=== PATIENT | female | born 1950 | race Caucasian/White ===

== ENCOUNTER → 2018-03-10 09:21 | Outpatient (CLI) | payer MEDICARE, SELFPAY ==
--- NOTE | 2018-03-10 09:26 | STE_ITS ---
Reason For Study: chest pain Stress Results Protocol: Tyler Protocol Maximum Predicted HR: 155 bpm Target HR: 132 bpm% Max imum Predicted HR: 97 % DurationHeart Rate Stage (mm:ss) (bpm) BP Baseline 74 118/74 Stage 1 3:00 10 6 150/70 Stage 2 3:00 12 6 158/80 Stage 3 3:00 15 0 172/78 Recovery 89 130/70 Stress Duration: 9:00 mm:ss Maximum Stress HR: 150 bpm Baseline Echocardiogram Findings Stress Echo Wall motion Data Resting WMIntermediate WMStress WM Resting Wall Motion Wall Motion Stress No regional wall motion No regional wall motion abnormalities noted. abnormalities noted. Ejection Fraction 55 %. Ejection Fraction 65 %. Stress Results Normal blood pressure response to exercise. Exercise was stopped due to fatigue. EKG Data Baseline ECG demonstrates normal sinus rhythm with a rate of 76 beats per minute. Normal intervals are noted. The resting blood pressure was 118/74. The patient exercised according to the regular Tyler protocol for a total duration of 9 min. The maximum heart rate attained was 153 beats per minute. This was 98% of maximum predicted heart rate. The patient exercised into stage 3 of the Tyler protocol. During stress, there were no ST or T wave changes noted to suggest ischemia. At peak exercise, upsloping ST changes only were noted, which did not meet the criteria for ischemia. Interpretation Summary Normal resting LV systolic function. Nonstenotic valves. With stress, the LV size decreased and all segments augmented normally. The LVEF increased from 55% to 60%. Negative for ischemia at 98% of MPHR and at 10.4 METS. No chest pain noted. Normal stress echo at a high workload. Ordering Physician: Shahriar Vazquez Referring Physician: Shahriar Vazquez Performed By: Ted Villalobos RCS
== END ==
PROVIDERS: Family Provider Family Medicine Geriatric Medicine; PCP Family Medicine Geriatric Medicine; Visit Provider Internal Medicine Cardiovascular Disease
DX: R07.9 Chest pain, unspecified (principal)
CPT/HCPCS: 93017; 93350

== ENCOUNTER → 2019-02-27 | Outpatient (CLI) | payer MEDICARE, SELFPAY ==
[2019-02-27 11:42] VITALS: BMI 23.1
[2019-02-27 13:31] LABS: Absolute Lymphocyte Count 2.07 X10^3/uL (0.83-4.51); Absolute Neutrophil Count 4.3 X10^3/uL (2.0-7.7); Basophil# 0.03 X10^3/uL; Basophil% 0.4 % (0-1); Eosinophils% 1.4 % (0-5); Hematocrit 41.7 % (37-47); Lymphocyte # 2.07 X10^3/ul (4.0); Lymphocyte % 28.6 % (19-41); Mean Corp Hgb Conc 33.6 g/dL (32-36); Mean Corpuscular Hgb 30.8 pg (27.0-32.0); Mean Corpuscular Volume 91.6 fL (81-99); Monocyte# 0.72 X10^3/uL; Monocyte% 9.9 % (0-10); NRBC Flagged by Analyzer 0 % (0-5); Neutrophil # 4.29 X10^3/uL (2.7-7.7); Neutrophil % 59.3 % (47-70); Platelet Count 348 K/mm3 (150-450); RBC Distribution Width CV 11.9 % (11.6-14.6); RBC Distribution Width SD 39.8 fl (35.1-43.9); Red Blood Count 4.55 M/mm3 (4.2-5.4); White Blood Count 7.2 K/mm3 (4.4-11.0)
[2019-02-27 14:04] LABS: Anion Gap 2 (5-15); BUN 22 mg/dL (7-18); BUN/Creat Ratio 32.4 RATIO (10-20); Calcium,Total 9.1 mg/dL (8.5-10.1); Chloride 107 mmol/L (98-107); Cholesterol 233 mg/dL (200); Creatinine, Serum 0.68 mg/dL (0.55-1.02); EST Glomerular Filtration Rate 92 mL/min (>60); Est Glom Filt Rate - Afr Amer 112 mL/min (>60); Glucose 94 mg/dL (74-106); High Density Lipoprotein 89 mg/dL; Potassium 4.2 mmol/L (3.5-5.1); Sodium Level 137 mmol/L (136-145); Thyroid Stim Hormone (TSH) 0.69 uIU/mL (0.358-3.74); Triglycerides 113 mg/dL; Very Low Density Lipoprotein 23 mg/dL (5-40)
== END | disposition home or self-care (01) ==
LOC: LAB 12:25
PROVIDERS: Family Provider Family Medicine Geriatric Medicine; PCP Family Medicine Geriatric Medicine; Referring Provider Internal Medicine Cardiovascular Disease; Visit Provider Internal Medicine Cardiovascular Disease
DX: R07.9 Chest pain, unspecified (principal); E78.5 Hyperlipidemia, unspecified
CPT/HCPCS: 36415; 80048; 80061; 84443; 85025

== ENCOUNTER 2020-01-23 04:30 | Emergency (ER) | payer MEDICARE, SELFPAY ==
[2019-12-24 14:11] VITALS: BMI 22.1
[2020-01-23 04:31] VITALS: BP 157/103; PULSE 82; RESP 22; TEMP 36.6; O2SAT 98; BMI 24.5
[2020-01-23 04:34] VITALS: BP 157/103; PULSE 82; RESP 22; TEMP 36.6; O2SAT 98
--- NOTE | 2020-01-23 04:44 | ED.DCSUM_ITS ---
History of Present Illness Chief Complaint: Bite Informant: Patient Occurred: Hours - 6-7 Mechanism/Context: - - bit in right forearm by cat Context: Gradual Onset - soreness and swelling after the bite Timing: Continuous Quality of Pain: - - sore Location: right distal dorsal forearm Current Severity: Mild Maximum Severity: Mild Worsened by: making a fist, movement Relieved by: remaining still Associated Symptoms: Negative for: Parasthesia, Weakness, Loss of Funtion Narrative: Patient states she was bitten by a neighborhood cat. She has a cat, and this other cat she sees almost daily who comes around. Tonight, the cat was well- appearing, rubbing itself on her leg, she simply bent down and scratched it back very gently and the cat suddenly seem scared and bit her in the arm. She had the think for a minute about whether this was a bite or scratch but she is pretty sure it was a bite. The cat did not seem ill. Patient started developing some swelling and a little bit more discomfort in the area in the next several hours, but no loss of function, fevers or systemic symptoms. Tetanus Immunization: <5 years - 2 yrs - Past Medical History (1) Hyperlipidemia Status: Chronic Past Medical History - Allergies and Home Meds Allergies/Adverse Reactions: Allergies gluten Adverse Reaction (Verified 01/23/20 04:33) GI Upset Primary Care Physician: Raleigh Reagan Chi, MD [Primary Care Provider] - Smoking Status: Former smoker Review of Systems General: Denies: Chills, Fever, Sweats Musculoskeletal: Reports: Extremity Pain Skin: Reports: Wounds Neurological: Denies: Headache, Weakness, Numbness Physical Exam Vital Signs/Narrative: Vital Signs Temp Pulse Resp BP Pulse Ox 01/23/20 04:31 97.9 F 82 22 H 157/103 H 98 General: Well nourished, Well developed, - - Well-appearing, no distress Head: Normocephalic, Atraumatic ENT: No Trauma, Moist Mucous Membranes Extremeties: Right upper extremity: Full range of motion throughout all joints, including wrist flexion and extension, fingers extension and flexion. No tenderness in the distribution of extensor tendons proximally or distally from the area of the wound. The wound is mildly tender. There is no fluctuance. It is mildly swollen around the puncture wounds. All compartments soft, nondistended. Skin: Normal color, Trauma - 2 or 3 small puncture wounds on the dorsum of the right distal forearm. No sign of infection. Very small amount of serosanguineous discharge expressible from 1 of them. Minor superficial abrasions associated with these. No abscess, redness/cellulitis, lymphangitis. Neurological: Alert, Oriented x3, Normal Gait Psychological: Normal affect, Normal Mood Diagnostic/Tx/Re-eval - Medical Decision Making Patient is placed on Augmentin for infection prophylaxis. We discussed reasons to return. Her tetanus is up-to-date. The wound was cleansed and dressed with bacitracin. She was offered ibuprofen but declined. With regards to rabies, she states she sees this cat daily, and it does not appear to be ill although she does not know who owns it. As long as she is comfortable continuing to observe the cat for symptoms, I am comfortable with her going home without rabies vaccinations. We discussed this at length. If at some point something changes, such as the cat is gone and she never sees it again and she changes her mind, we are welcome to evaluate her again and discuss further, but I suspect that the risk of rabies in this cat is low. ED Disposition - Plan for ED Patient: Disposition: Home or Assisted Living Diagnosis: Cat bite of right forearm Instructions: ED Bite Cat Prescriptions: Amox/Clavulanate Tablet [Augmentin Tablet] 875 mg PO Q12H #20 tab Transmission Status: Pending to TRAN [id number] Referrals: Raleigh Reagan Chi, MD [Primary Care Provider] - As Needed
[2020-01-23] MEDS: Amox/Clavulanate 875 MG Tablet PO (04:46)
== END 2020-01-23 05:14 | disposition home or self-care (01) ==
LOC: ED 04:58
PROVIDERS: Emergency Provider Emergency Medicine; PCP Family Medicine Geriatric Medicine
DX: S51.851A Open bite of right forearm, initial encounter (principal); W55.01XA Bitten by cat, initial encounter; Z87.891 Personal history of nicotine dependence
CPT/HCPCS: 99283

== ENCOUNTER 2020-10-18 16:45 | Outpatient (RCR) | payer MEDICARE, SELFPAY ==
[2020-09-27 07:47] VITALS: BMI 24.9
[2020-10-18] MEDS: COVID-19 VACC, MRNA(PFIZER)/PF 30 MCG/0.3 ML SYRINGE IM (15:13)
[2020-11-08] MEDS: COVID-19 VACC, MRNA(PFIZER)/PF 30 MCG/0.3 ML SYRINGE IM (14:56)
== END 2021-01-17 23:59 ==
LOC: IMMUN 16:45
PROVIDERS: PCP Family Medicine; Visit Provider Family Medicine
DX: Z23 Encounter for immunization (principal)
CPT/HCPCS: 0001A; 0002A; 91300

== ENCOUNTER → 2021-03-24 07:57 | Outpatient (CLI) | payer MEDICARE, SELFPAY ==
[2021-03-07 05:28] VITALS: BMI 24.9
[2021-03-07 14:47] VITALS: BMI 24.0
--- NOTE | 2021-03-24 08:05 | CT_ITS ---
STUDY: CT ABDOMEN AND PELVIS WITH CONTRAST REASON FOR EXAM: Female, 70 years old. Ventral hernia RADIATION DOSAGE (If Supplied By Facility): CTDIvol = ( 11.64 ) mGy, DLP = ( 616.79 ) mGycm TECHNIQUE: Transaxial images were obtained from the dome of the diaphragm to the symphysis pubis with oral contrast. Oral and amp; IV Readi-CAT and amp; 100mL Isovue-300 was administered. Sagittal and coronal images were reconstructed. Individualized dose optimization techniques were used for this CT. COMPARISON: None. FINDINGS: The visualized lung bases are unremarkable. The visualized portions of the heart are within normal limits. There is a 1 cm cyst in the dome of the right lobe of the liver. Normal gallbladder and extrahepatic biliary system. Normal spleen. Focal area of coarse calcifications seen in the region of the head and uncinate process of the pancreas. This may represent changes secondary to chronic pancreatitis. No definite mass lesion is seen. Normal bilateral adrenal glands. Normal right kidney. Normal left kidney. Normal visualized stomach. Normal small intestine. Moderate amount of fecal material is seen throughout the colon. The appendix is visualized and appears normal. Normal abdominal aorta. Normal inferior vena cava. Normal retroperitoneum. Normal urinary bladder. Calcified fibroid uterus. There is a small umbilical hernia containing fat. Normal osseous structures. CT/Abdomen/Pelvis WITH Contrast IMPRESSION: Amorphous calcifications in the region of the head and uncinate process of the pancreas suggestive of chronic localized pancreatitis. No mass lesion is seen. Small umbilical hernia containing fat. Electronically Signed: Dudley Casillas MD at 11:12 EDT , Service support ,
[2021-03-24 08:26] LABS: CREATININE FINGERSTICK 0.7 mg/dL (0.55-1.02); EGFR FINGERSTICK > 60.0000 mL/min (>60)
== END ==
PROVIDERS: PCP Family Medicine; Referring Provider Surgery; Visit Provider Surgery
DX: E78.5 Hyperlipidemia, unspecified (principal); K43.9 Ventral hernia without obstruction or gangrene
CPT/HCPCS: 74177; Q9967

== ENCOUNTER 2021-06-26 08:55 | Day surgery (SDC) | payer MEDICARE, SELFPAY ==
--- NOTE | 2021-06-21 10:32 | EKG12_ITS ---
Test Reason : PREOP Blood Pressure : / mmHG Vent. Rate : 062 BPM Atrial Rate : 062 BPM P-R Int : 192 ms QRS Dur : 080 ms QT Int : 406 ms P-R-T Axes : 062 -20 060 degrees QTc Int : 412 ms Normal sinus rhythm Normal ECG Confirmed by ONEIDA SCHULTE, CASSANDRA ([id number]), production editor REZA SCHROEDER ([id number]) on 06/22/2021 9:01:02 AM Referred By: José Beard Confirmed By:CASSANDRA MOHAMUD MD
[2021-06-26 09:47] VITALS: BP 129/85; PULSE 79; RESP 16; TEMP 36.8; O2SAT 98; BMI 24.2
[2021-06-26] MEDS: Lactated Ringers 1,000 ML 15 ML IV (09:52)
--- NOTE | 2021-06-26 11:00 | HERN_PTH ---
PATIENT: SCHUYLER FRYE LOC: [facility] – [place] U#:[id number] AGE/SX: 70/F ROOM: RE06/26/[address]: Dr. José Beard MD : 1950 BED: DIS: 06/26/2021 SPEC #: [id number] RECD: 06/26/21 14:13 STATUS: JUICE FELDMAN #: [id number] ROD: 06/26/21 11:[address]: José Beard DEPT: SURGICAL PATHOLOGY RECD BY: Ne Santoro ENTERED: 06/27/21 07:44 SP TYPE: Hernia OTHR DR: Dr. Belinda Ortiz MD Tissues: HERNIA Procedures: Surgery Specimen Level II HEADER OPERATION: Ventral incisional hernia repair with mesh PRE-OP DIAGNOSIS: Ventral hernia TISSUE SUBMITTED: Hernia sac and contents MICROSCOPIC DIAGNOSIS Hernia sac and contents: A piece of fibroadipose tissue, clinically hernia sac. SJ:charisse 06/28/2021 MICROSCOPIC DESCRIPTION Slides are reviewed. GROSS DESCRIPTION Received in fixative is one container labeled with the patient's name and designated hernia sac and contents. The specimen consists of an irregular piece of klein-yellow adipose tissue measuring 8 x 3.5 x 1.5 cm. No mass lesion is identified. Software Development Intern sections are submitted in one cassette. / SUSY:charisse 06/27/21 TC:5 [facility]: [id number]
--- NOTE | 2021-06-26 11:11 | HP.PCM_ITS ---
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 Is patient in pain?: No Allergies gluten Adverse Reaction (Verified 06/20/21 13:16) GI Upset Medications B-complex with vitamin C 1 cap PO QDAY 02/05/18 [History Confirmed 06/20/21] ascorbic acid (vitamin C) 500 mg capsule 500 mg PO .QD cap 12/24/19 [History Confirmed 06/20/21] cholecalciferol (vitamin D3) 50 mcg (2,000 unit) capsule 50 mcg PO DAILY 12/24/19 [History Confirmed 06/20/21] PFSH Medical History Alcohol use Back pain Cardiology follow-up encounter Colon polyps Dietary restriction Former smoker Hemorrhoids History of stress test Hyperlipidemia Leg cramps Marijuana use Migraine headache Seasonal allergies Wears glasses Wears hearing aid Surgical History H/O wrist surgery History of colonoscopy Family History Father Heart disease angina Mother Hypertension Thyroid disorder Sister Colon cancer Social History Smoking Status: Former smoker HPI HPI HPI: SCHUYLER FRYE, is a 70 F who presents to the office today for an update history and physical. She denies recent hospitalizations or illnesses. She denies previous complications from anesthesia. She denies previous cardiac and pulmonary history. She notes intermittent constipation, however this is not a new symptoms for her. She denies pain at the hernia site. Patient's previous history per Dr. Beard: SCHUYLER FRYE, is a 70 F who presents to the office today for surgical consultation for a bulge between her sternum and navel. The patient is referred by Dr. Belinda Ortiz and written copy my surgical consult and recommendations will return to her. The patient apparently has concerns that she might have a ventral hernia. The patient does yoga. She states that for over a decade she noticed a small mass in the mid epigastric area. It is progressively enlarging. She states that she has gained about 20 pounds in weight. Taking a deep breath is slightly more difficult. She has not had any imaging of this area. She has not any previous abdominal surgery. SCHUYLER FRYE, is a 70 F who presents to the office today for ongoing surgical evaluation regarding a subcutaneous mass in the epigastrium. To help evaluate this the patient had a CT scan of the abdomen March 24, 2021. Although the interpretation below does not discussed the particular finding I am able to personally review the films and identify that the patient has a epigastric hernia with subsequent subcutaneous mass as a result. The patient has had no change in health since her previous office visit. March 24, 2021 STUDY: CT ABDOMEN AND PELVIS WITH CONTRAST REASON FOR EXAM: Female, 70 years old. Ventral hernia RADIATION DOSAGE (If Supplied By Facility): CTDIvol = ( 11.64 ) mGy, DLP = ( 616.79 ) mGycm TECHNIQUE: Transaxial images were obtained from the dome of the diaphragm to the symphysis pubis with oral contrast. Oral and amp; IV Readi-CAT and amp; 100mL Isovue-300 was administered. Sagittal and coronal images were reconstructed. Individualized dose optimization techniques were used for this CT. COMPARISON: None. FINDINGS: The visualized lung bases are unremarkable. The visualized portions of the heart are within normal limits. There is a 1 cm cyst in the dome of the right lobe of the liver. Normal gallbladder and extrahepatic biliary system. Normal spleen. Focal area of coarse calcifications seen in the region of the head and uncinate process of the pancreas. This may represent changes secondary to chronic pancreatitis. No definite mass lesion is seen. Normal bilateral adrenal glands. Normal right kidney. Normal left kidney. Normal visualized stomach. Normal small intestine. Moderate amount of fecal material is seen throughout the colon. The appendix is visualized and appears normal. Normal abdominal aorta. Normal inferior vena cava. Normal retroperitoneum. Normal urinary bladder. Calcified fibroid uterus. There is a small umbilical hernia containing fat. Normal osseous structures. CT/Abdomen/Pelvis WITH Contrast IMPRESSION: Amorphous calcifications in the region of the head and uncinate process of the pancreas suggestive of chronic localized pancreatitis. No mass lesion is seen. Small umbilical hernia containing fat. Electronically Signed: Dudley Casillas MD at 11:12 EDT , Service support , ROS General General: Yes weight change; No appetite, fatigue, colon cancer, breast cancer or weakness HEENT HEENT: No difficulty swallowing, eye injury, eye surgery, swollen glands or hoarseness Endo Endocrine: No thyroid disease, diabetes mellitus, thyroid cancer, Hair loss, heat intolerance or cold intolerance Musc Musculoskeletal: Yes arthritis; No back problems, rheumatoid arthritis, gout or joint pain Cardio Cardiovascular: No murmur, pacemaker, heart disease, atrial fibrillation, high blood pressure, heart attack, heart stent, palpitations, shortness of breat with exertion or chest pain Psych Psychiatric: No depression, anxiety or hearing voices Resp Respiratory: No shortness of breath, No sleep apnea, No cough, No COPD, No asthma, No emphysema and No wheezing Gastro Gastrointestinal: No abdominal pain, No nausea or vomiting, No diarrhea, No constipation, No blood in stool, No acid reflux, No hemorrhoids, No ulcers, No gallbladder problem and No black,tarry stools Bruno Hematologic: No blood thinners, No blood disorders, No bleeding, No anemia and No blood clots Neuro Neurologic: No weakness Exam Const General: cooperative, healthy appearing, comfortable and no acute distress HENAL Head: normal to inspection Eyes General: appearance normal, both eyes and all related structures Neck Neck: normal visual inspection Neck mass: No Resp Effort & Inspection: normal respiratory effort Auscultation: clear to auscultation bilaterally Cardio Rate: regular rate Rhythm: regular rhythm GI Inspection: normal to inspection Palpation: soft and hernia (epigastric ventral reducible hernia palpated. ) ventral Auscultation: normal bowel sounds Skin General: no rashes or lesions noted Neuro General: no focal motor deficits and CN's II-XI intact bilaterally Extrem General: normal to inspection Psych Appearance: grossly normal Affect: normal affect COVID (Procedure Consent) Procedure Criteria Procedure Criteria: Yes Elective The surgeon/proceduralist and patient have discussed in detail the risk of exposure to and/or potential harm posed by the COVID-19 virus with having a surgery/procedure at this time versus the risk of delaying the surgery/procedure. It is not possible to know either the risk of delaying the surgery or procedure or chance of getting an infection with perfect accuracy, but a joint decision was made between the patient and the surgeon/ proceduralist to proceed at this time with the scheduled surgery/procedure as indicated on the consent form. Assessment and Plan Assessment and Plan (1) Ventral hernia without obstruction or gangrene: Status: Acute Plan - Christina DIAZ PA-C: Dr. Beard will plan to perform an open ventral hernia repair with mesh. Procedure details, risks and benefits have been reviewed. Patient has had the opportunity to ask and have questions answered. Patient verbally understands and agrees with the plan. We have reviewed post-operative instructions. Coding Level of Care Code No Charge Diagnoses Ventral hernia without obstruction or gangrene K43.9 Christina Suresh PA-C I concur with the above findings. I agree. The clinical examination. The patient notes some generalized abdominal bloatedness. I instructed her that we would not be doing exploratory laparotomy and that this hernia repair will be a focal event. If she has symptoms postoperatively we would need to evaluate addit ionally further symptoms. She has had an opportunity to ask and have questions answered. We will proceed as noted. José Beard M.D., F.A.C.S.
--- NOTE | 2021-06-26 11:13 | EX.PCM.DISCH ---
Discharge Instructions Procedure General Surgery Diet Discharge Diet: Light diet - advance as tolerated (if you have questions about your diet instructions, please talk to you doctor.) Activity Discharge Activity: May Not Drive (for 3-5 days or while taking narcotic pain medicine.) May shower in (days): 1 Lifting Restrictions: 10 pounds Dressing / Incision Call your doctor if your incision/area has: Continuous Slow Oozing, Sudden Increased Bleeding, Increased Pain/ Swelling, Increased Redness and Foul Smelling Discharge Call your doctor if you observe: Fever of 101 or Higher Suture Line Care: Avoid Pulling/Pushing and Avoid Pinching/Bending Additional Dressing/Incision Instructions:: Change or remove dressing in 4 days. Leave steri-strips in place for 1 week. Follow Up Care Please Follow Up With: José Beard MD When: Call [phone] to make an appointment to be seen in about 10 days. Test Results: Test results from this visit will be discussed in further detail at your follow-up appointment, if applicable. Discharge Plan Admission Attending Provider: José Beard Primary Care Provider: Belinda Ortiz Discharge Orders/Prescriptions Prescriptions: No Action B-complex with vitamin C capsule capsule 1 cap PO QDAY RF: 0 ascorbic acid (vitamin C) 500 mg capsule 500 mg PO .QD RF: 0 cholecalciferol (vitamin D3) 50 mcg (2,000 unit) capsule 50 mcg PO DAILY RF: 0
[2021-06-26] MEDS: Cefazolin 2 GM in 0.9% Normal Saline 100 ML IV (11:19)
--- NOTE | 2021-06-26 12:11 | PCM.OPRPT ---
Problems Associated Problem List Diagnoses (1) Ventral hernia without obstruction or gangrene: Report of Operation Date of Procedure: 06/26/21 Pre-Operative Diagnosis: Epigastric ventral hernia Post-Operative Diagnosis: Epigastric ventral hernia with nonreducible preperitoneal fat Surgery/Procedure Performed:: Epigastric ventral herniorrhaphy with monofilament polypropylene onlay mesh. Bard mesh reid sharma Lot number [id number], reference #[id number], expiry date 01/06/2026 cut down to a circular portion for onlay Description of Surgical Findings:: Timeout and informed consent was obtained. 70-year-old female was taken to the operating place upon the table and underwent general anesthesia. Ancef 2 g were given previously. The abdomen sterilely prepped and draped. 0.5% Marcaine was used as a local anesthetic. Throughout the procedure total 30 cc was used. Overlying the soft tissue mass a transverse incision was created sharp blunt sections used to identify the preperitoneal fatty tissue in carcinoid within the defect. Using electrocautery this was dissected free. The defect measured approximately 1.5 cm in diameter. It was repaired with simple sutures of 0 Nurolon. I recreated a space by dissecting free the subcutaneous tissue. Then using the monofilament polypropylene mesh made a little circular add on patch. I secured that in place with interrupted 3-0 Ethibond. It completely covered the sutured area. Then approximated the subcutaneous tissues with 3-0 Vicryl. The skin edges were approximated running subicular 4-0 Monocryl. Steri-Strips Telfa OpSite dressings applied. Sponge and instrument and needle counts were reported to the surgeon to be correct. Specimen hernia sac and contents. Drains none. Blood loss minimal. José Beard M.D., F.A.C.S. Surgeon: José Beard Type of Anesthesia: General and Local Anesthesiologist: Jaciel Whipple
[2021-06-26] MEDS: Bupivacaine Mpf 0.5% 30 ML VIAL (12:13)
[2021-06-26 12:30] VITALS: BP 119/70; BP 129/85; PULSE 88; RESP 16; TEMP 36.1; O2SAT 97
[2021-06-26 12:45] VITALS: BP 113/73; BP 129/85; PULSE 66; RESP 16; O2SAT 99
[2021-06-26 13:00] VITALS: BP 122/80; BP 129/85; PULSE 65; RESP 16; TEMP 36.1; O2SAT 99
[2021-06-26 14:15] VITALS: BP 110/65; BP 129/85; PULSE 70; RESP 16; TEMP 36.4; O2SAT 97
== END 2021-06-26 14:34 ==
LOC: SDC 09:19 → AC 09:23
PROVIDERS: PCP Family Medicine; Referring Provider Surgery; Visit Provider Surgery
PROC: (CPT 49560; principal; 2021-06-26 10:45)
DX: K43.9 Ventral hernia without obstruction or gangrene (principal); Z87.891 Personal history of nicotine dependence
CPT/HCPCS: 49560; 49568; 88302; 93005; J7120; C1781; J2405

== ENCOUNTER → 2022-03-19 | Outpatient (CLI) | payer MEDICARE, SELFPAY ==
[2022-03-19] MEDS: 0.9% NaCl Peripheral Flush Adult/Peds IV (11:24)
[2022-03-19] MEDS: 0.9% Normal Saline 1,000 ML 500 ML IV (11:24)
[2022-03-19 11:25] VITALS: BP 133/75; PULSE 76; RESP 16; TEMP 36.2; O2SAT 98
[2022-03-19 13:28] VITALS: BP 120/75; PULSE 62
== END | disposition home or self-care (01) ==
LOC: MEDOUTP 11:02
PROVIDERS: PCP Family Medicine; Referring Provider Surgery; Visit Provider Surgery
DX: E86.0 Dehydration (principal)
CPT/HCPCS: 96360; 96361; J7030; A4216

== ENCOUNTER 2022-03-20 06:32 | Day surgery (SDC) | payer MEDICARE, SELFPAY ==
[2022-03-20] VITALS (7 sets, daily range): BP systolic 72–125; BP diastolic 51–78; PULSE 64–76; RESP 14–17; TEMP 36–36.6; O2SAT 95–100; BMI 24.4
--- NOTE | 2022-03-20 | COLBX_PTH ---
PATIENT: SCHUYLER FRYE LOC: [place] U#:[id number] AGE/SX: 71/F ROOM: RE03/20/[address]: Dr. José Beard MD : 1950 BED: DIS: 03/20/2022 SPEC #: [id number] RECD: 03/20/22 13:09 STATUS: JUICE RESarah #: [id number] ROD: 03/20/22 00:[address]: José Beard DEPT: SURGICAL PATHOLOGY RECD BY: Homero Michel ENTERED: 03/20/22 13:09 SP TYPE: COLON BX OTHR DR: Dr. Belinda Ortiz MD Tissues: A - Cecum, NOS B - COLON BIOPSY Procedures: Surgery Specimen Level IV HEADER OPERATION: Colonoscopy (MAC), biopsy PRE-OP DIAGNOSIS: History of colonic polyps TISSUE SUBMITTED: A ? Cecum polyp biopsy, B ? Hepatic flexure polyp biopsy MICROSCOPIC DIAGNOSIS A. Cecal polyp, biopsy: Fragments of tubular adenoma. B. Colonic polyp at hepatic flexure, biopsy: Fragments of tubular adenoma. AM:charisse 03/21/2022 MICROSCOPIC DESCRIPTION Slides are reviewed. GROSS DESCRIPTION A - Received in fixative is one container labeled with the patient's name and designated cecum polyp biopsy. The specimen consists of multiple irregular fragments of light klein soft tissue that in aggregate measure 0.7 x 0.5 x 0.1 cm. The specimen is totally submitted in one cassette. B - Received in fixative is one container labeled with the patient's name and designated hepatic flexure polyp biopsy. The specimen consists of two irregular fragments of light klein soft tissue that in aggregate measure 0.4 x 0.3 x 0.1 cm. The specimen is totally submitted in one cassette. / SJ:charisse 03/20/2022 TC:5 CPT: 63724 x2
--- NOTE | 2022-03-20 07:04 | PCM.HP.BLA ---
History and Physical Date of Admission: 03/20/22 Visit Reasons:?COLONOSCOPY Chief Complaint: colonoscopy, hx polyps Loan Processing Supervisor Required: No Is patient in pain?: No Allergies gluten Adverse Reaction (Verified 11/20/21 09:13) GI Upset Medications B-complex with vitamin C 1 cap PO QDAY 02/05/18 [History Confirmed 11/20/21] ascorbic acid (vitamin C) 500 mg capsule 500 mg PO .QD? cap 12/24/19 [History Confirmed 11/20/21] cholecalciferol (vitamin D3) 50 mcg (2,000 unit) capsule 50 mcg PO DAILY 12/24/19 [History Confirmed 11/20/21] Is last menstrual period known: No Post menopausal: Yes Patient : No PFSH Medical History?(Updated 11/20/21 @ 09:[address] José Beard MD) Alcohol use Back pain Cardiology follow-up encounter Colon polyps Dietary restriction Former smoker Hemorrhoids History of stress test Hyperlipidemia Leg cramps Marijuana use Migraine headache Seasonal allergies Wears glasses Wears hearing aid Surgical History?(Updated 11/20/21 @ 09:12 by Jackie Bond) H/O wrist surgery History of colonoscopy (~03/2017) S/P ventral herniorrhaphy Family History? Father Heart disease ?? ? anginaMother Hypertension Thyroid disorderSister Colon cancer Social History? Smoking Status:? Former smoker HPI HPI HPI: SCHUYLER FRYE, is a 70 F who presents to the office today for surgical consultation regarding colon polyps.? Patient's had a total of 4 colonoscopies.? The first 3 colonoscopy polyps were identified.? No polyps were identified 5 years ago.? The patient does have a sister who had colon cancer.? The patient is concerned that she becomes very ill with the bowel prep.? She received IV fluids prior to her most recent colonoscopy. Patient stays very physically fit.? She denies any cardiac or pulmonary or renal disease.? No history of DVT. She walks very routinely and does routine amount of yoga. She is gluten intolerant.? If she veers from that she will have some abdominal cramping.? There is been no bright red blood per rectum or melena.? She feels that she is enjoying a very high quality of life. ROS General General: No weight change, appetite, fatigue, colon cancer, breast cancer or weakness HEENT HEENT: No difficulty swallowing, eye injury, eye surgery, swollen glands or hoarseness Endo Endocrine: No thyroid disease, diabetes mellitus, thyroid cancer, Hair loss, heat intolerance or cold intolerance Musc Musculoskeletal: Yes arthritis; No back problems, rheumatoid arthritis, gout or joint pain Cardio Cardiovascular: No murmur, pacemaker, heart disease, atrial fibrillation, high blood pressure, heart attack, heart stent, palpitations, shortness of breat with exertion or chest pain Psych Psychiatric: No depression, anxiety or hearing voices Resp Respiratory: No shortness of breath, No sleep apnea, No cough, No COPD, No asthma, No emphysema and No wheezing Gastro Gastrointestinal: No abdominal pain, No nausea or vomiting, No diarrhea, Yes constipation, No blood in stool, No acid reflux, No hemorrhoids, No ulcers, No gallbladder problem and No black,tarry stools Bruno Hematologic: No blood thinners, No blood disorders, No bleeding, No anemia and No blood clots Neuro Neurologic: No weakness Exam Const General: cooperative, healthy appearing, comfortable and no acute distress Nutritional Appearance: average body habitus Orientation: alert and awake HENPR Head: normal to inspection Eyes General: appearance normal, both eyes and all related structures Neck Neck: normal visual inspection Resp Effort & Inspection: normal respiratory effort Cardio Rate: regular rate Rhythm: regular rhythm GI Palpation: soft and no hepatosplenomegaly Auscultation: normal bowel sounds Musc Cervical Spine: normal cervical lordosis Neuro General: patient alert and patient awake Extrem General: no calf tenderness Psych Appearance: grossly normal Assessment and Plan Assessment and Plan (1) Personal history of colonic polyps: ?Status:?Acute (2) Family history of malignant neoplasm of colon in first degree relative diagnosed when younger than 60 years of age: ?Status:?Acute ?Plan - Dr. José Beard MD: I recommended the patient surveillance colonoscopy.? Previous examination 5 years ago.? She is aware of the technique, benefit, risk, alternatives.? We will utilize monitored anesthesia care. The patient previously fared better with the bowel preparation with IV hydration today before and we will arrange for 1 L of 0.9% normal saline to be given intravenously. She has had an opportunity ask no questions answered.? We will schedule procedure at her discretion.? I appreciate the ongoing opportunity of assisting with her surgical care. Copy: Dr. Belinda Beard M.D., F.A.C.S. I have re-examined the patient. There are no clinical changes since date of exam. José Beard M.D., F.A.C.S.
--- NOTE | 2022-03-20 07:46 | OP.COLON_ITS ---
Patient Name: Meredith Patton Procedure Date: 03/20/2022 7:09 AM Date of : 1950 Age: 71 Procedure: Colonoscopy Indications: High risk colon cancer surveillance: Personal history of colonic polyps Providers: José Beard MD Medicines: See the Anesthesia note for documentation of the administered medications Patient Profile: Last Colonoscopy: 5 years ago. Complications: No immediate complications. Procedure: Pre-Anesthesia Assessment: - Prior to the procedure, a History and Physical was performed, and patient medications and allergies were reviewed. The patient's tolerance of previous anesthesia was also reviewed. The risks and benefits of the procedure and the sedation options and risks were discussed with the patient. All questions were answered, and informed consent was obtained. Prior Anticoagulants: The patient has taken no previous anticoagulant or antiplatelet agents. ASA Grade Assessment: II - A patient with mild systemic disease. After reviewing the risks and benefits, the patient was deemed in satisfactory condition to undergo the procedure. After I obtained informed consent, the scope was passed under direct vision. Throughout the procedure, the patient's blood pressure, pulse, and oxygen saturations were monitored continuously. The colonoscope was introduced through the anus and advanced to the cecum, identified by appendiceal orifice and ileocecal valve. The colonoscopy was performed without difficulty. The patient tolerated the procedure well. The quality of the bowel preparation was good. The ileocecal valve and the appendiceal orifice were photographed. Scope In: 7:22:46 AM Scope Withdrawal Time 0 hours 11 minutes 14 seconds Scope Out: 7:41:28 AM Total Procedure Duration Time 0 hours 18 minutes 42 seconds Findings: Hemorrhoids were found on perianal exam. A 4 mm polyp was found in the cecum. The polyp was sessile. The polyp was removed with a cold biopsy forceps. Resection and retrieval were complete. A 4 mm polyp was found in the hepatic flexure. The polyp was sessile. The polyp was removed with a cold biopsy forceps. Resection and retrieval were complete. Scattered diverticula were found in the sigmoid colon. Impression: - Hemorrhoids found on perianal exam. - One 4 mm polyp in the cecum, removed with a cold biopsy forceps. Resected and retrieved. - One 4 mm polyp at the hepatic flexure, removed with a cold biopsy forceps. Resected and retrieved. - Diverticulosis in the sigmoid colon. Recommendation: - Discharge patient to home. - Resume previous diet. - Continue present medications. - Telephone my office for pathology results in 1 week. - Repeat colonoscopy in 5 years for surveillance. Procedure Code(s): --- Professional --- 57523, Colonoscopy, flexible; with biopsy, single or multiple Diagnosis Code(s): --- Professional --- Z86.010, Personal history of colonic polyps K64.9, Unspecified hemorrhoids D12.0, Benign neoplasm of cecum D12.3, Benign neoplasm of transverse colon (hepatic flexure or splenic flexure) K57.30, Diverticulosis of large intestine without perforation or abscess without bleeding CPT copyright 2017 [employer]. All rights reserved. The codes documented in this report are preliminary and upon bottom turner review may be revised to meet current compliance requirements. José Beard MD 03/20/2022 7:45:45 AM This report has been signed electronically. Number of Addenda: 0 Note Initiated On: 03/20/2022 7:09 AM
--- NOTE | 2022-03-20 07:47 | OP.CCLET_ITS ---
03/20/2022 Belinda Ortiz [facility] [address] [place] [address] Re : Colonoscopy procedure for Meredith Patton Dear Dr. Ortiz This procedure was performed on Sunday, March 20, 2022. My impressions and recommendations are as follows: Impressions : - Hemorrhoids found on perianal exam. - One 4 mm polyp in the cecum, removed with a cold biopsy forceps. Resected and retrieved. - One 4 mm polyp at the hepatic flexure, removed with a cold biopsy forceps. Resected and retrieved. - Diverticulosis in the sigmoid colon. Recommendations : - Discharge patient to home. - Resume previous diet. - Continue present medications. - Telephone my office for pathology results in 1 week. - Repeat colonoscopy in 5 years for surveillance. My findings are described in the full procedure note, which is enclosed. If I can be of further assistance, please feel free to contact me at Doctor phone number(s): Work: . Sincerely, José Beard MD 03/20/2022 7:45:45 AM This report has been signed electronically.
== END 2022-03-20 08:40 | disposition home or self-care (01) ==
LOC: EN 06:35 → AC 06:36
PROVIDERS: PCP Family Medicine; Referring Provider Family Medicine; Visit Provider Surgery
PROC: 0DJD8ZZ Inspection of Lower Intestinal Tract, Via Natural or Artificial Opening Endoscopic (ICD-10-PCS; CPT 45378; principal; 2022-03-20 07:25)
DX: Z12.11 Encounter for screening for malignant neoplasm of colon (principal); D12.0 Benign neoplasm of cecum; D12.3 Benign neoplasm of transverse colon; K64.9 Unspecified hemorrhoids; K57.30 Diverticulosis of large intestine without perforation or abscess without bleeding; Z80.0 Family history of malignant neoplasm of digestive organs; Z87.891 Personal history of nicotine dependence; Z86.010 Personal history of colon polyps
CPT/HCPCS: 45380; 88305; J7120; J2405

== ENCOUNTER → 2023-08-28 | Outpatient (CLI) | payer MEDICARE, SELFPAY ==
--- OUTSIDE RECORDS SUMMARY | 2023-08-28 11:38 | XMS RPT_ITS | CCD ---
Author Name Unknown Address [facility] [employer] [id number] [place] [address] Organization [facility] Care Team Providers Care Terminal Make Up Operator Name Role Phone Demetrice MCINTYRE, Christina Crowder Unavailable Allergies Allergy Classification Reported Allergen(s) Allergy Type Date of Onset Reaction(s) Facility (1 source) Gluten drug allergy 4 Facial redness, gloating and gas [facility] Work Phone: Medications Completed/Discontinued Medications Medication Drug Class(es) Dates Sig (Normalized) Sig (Original) aspirin 325 mg oral tablet (1 source) Nonsteroidal Anti-inflammatory Drug Start: 06-17-2014 take 1 tablet by mouth once daily as needed for headache ASPIRIN 325 MG TABS One tablet by mouth daily as needed for headaches ASPIRIN [id number] Mariana Carmona RN B COMPLEX VITAMINS (1 source) Start: 03-25-2017 take 1 tablet by mouth once daily B COMPLEX-B12 TABS One tablet by mouth daily B COMPLEX VITAMINS [id number] Christina Suresh PA-C magnesium oxide (3 sources) Start: 03-25-2017 take 1 tablet by mouth once daily GNP MAGNESIUM OXIDE TABS One tablet by mouth daily MAGNESIUM OXIDE TABS [id number] Christina Suresh PA-C Problems Active Problems Problem Classification Problem Date Documented Da te Episodic/Chronic Disorders of lipid metabolism (1 source) Hyperlipidemia; Translations: [Hyperlipidemia, unspecified] Onset: 06-17-2014 06-17-2014 Chronic Past or Other Problems Problem Classification Problem Date Documented Da te Episodic/Chronic Other and unspecified benign neoplasm (1 source) History of polyp of colon; Translations: [Personal history of colonic polyps] Onset: 03-25-2017 03-25-2017 Episodic Unclassified (1 source) FH: Hypertension; Translations: [Family history of ischemic heart disease and other diseases of the circulatory system] 06-23-2014 Episodic Results Test Name Value Interpretation Reference Range Facil ity Vital Signs Date Time Vital Sign Value Performing Clinician Facility 03-25-2017 09:05-0400 BMI (Body Mass Index) 21.95 kg/m2 Christina Suresh PA-C [facility] Work Phone: 03-25-2017 09:05-0400 BP Diastolic 79 mm[Hg] Christina Suresh PA-C [facility] Work Phone: 03-25-2017 09:05-0400 BP Systolic 133 mm[Hg] Christinadominic Suresh PA-C [facility] Work Phone: 03-25-2017 09:05-0400 Height 172.72 cm Christina Suresh PAPurveyourMarquise [facility] Work Phone: 03-25-2017 09:05-0400 Pulse (Heart Rate) 98 /min Christina Suresh PACeciMarquise [facility] Work Phone: 03-25-2017 09:05-0400 Respiratory Rate 16 /min Christina Cruzisela DIAZCeciMarquise [facility] Work Phone: 03-25-2017 09:05-0400 Weight 65.5 kg Christina Suresh PACeciMarquise [facility] Work Phone: Procedures Date Procedure Procedure Detail Performing Clinician Start: 06-23-2014 End: 06-23-2014 Electrocardiogram, complete Shahriar Vazquez MD Start: 06-23-2014 End: 06-23-2014 Follow Up Appt Other Shahriar Vazquez MD Plan of Treatment Date Care Activity Detail Author Start: 03-26-2017 End: 03-26-2017 Appointment Appointment [facility] Work Phone: Start: 03-25-2017 End: 03-25-2017 Appointment Appointment [facility] Work Phone: Start: 03-25-2017 End: 03-25-2017 Diagnostic colonoscopy Colonoscopy [facility] Work Phone: Start: 06-23-2014 End: 06-23-2014 *Hepatic Function Panel *Hepatic Function Panel [facility] Work Phone: Start: 06-23-2014 End: 06-23-2014 Electrocardiogram, complete EKG (In office) [facility] Work Phone: Start: 06-23-2014 End: 06-23-2014 Follow Up Appt Other Follow Up Appt Other [facility] Work Phone: Start: 06-23-2014 End: 06-23-2014 Lipid panel [AGGREGATE] *Lipid Profile CC PCP [facility] Work Phone: Start: 06-23-2014 End: 07-07-2014 Stress Echocardiogram (treadmill) Stress Echocardiogram (treadmill) [facility] Work Phone: Start: 06-23-2014 End: 06-23-2014 Thyroid stimulating hormone (TSH) *TSH [facility] Work Phone: Start: 06-23-2014 End: 06-23-2014 Thyroxine (T4) *T4 (Total) [facility] Work Phone: Patient Education HEART+HEALTHY+DIET [facility] Work Phone: Progress note 10-26-2021 Note Date & Type Note Facility 10-26-2021 Note HNO ID: [id number] Author: Paxton Dimas, PhD Service: ? Author Type: Psychologist Type: Progress Notes Filed: 10/26/2021 12:32 PM Note Text: [facility] Progress Note Meredith Frye 10/26/2021 [id number] Provider: Paxton Dimas, PhD CPT Code: 75750 Psychiatric diagnostic evaluation Time: Approximately 50 minutes was spent in therapy. Parties Present: Patient Patient Presentation/Concerns: INITIAL VISIT Pt grew up as youngest of bro and sis in [facility].... parents didnt get along and not engaged in us kids ... we played a lot w each other... not much direction or encouragement from parents... 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 then at 42 [employer] and Jungian therapy along w learning a number of forms of massage 20 years job in [place] she liked partner of 8 yrs of heart attack SHE REPORTS BEING AMBIVALENT in relationships NOW... pt reports fatigue, problem w focused attention ADHD... did a paper and pencil Profile and interview... ADHD, inattentive type PLAN: discussed what ADHD is from Dopamine perspective pt will check back w PCP who has given her several meds ISSUE: tends to say yes and not take care of herself enough Mental Status: Mood: variable Affect: mood-congruent Thoughts/Associations:goal directed Suicidal/Homicidal Ideation: None expressed or evidenced Other Observations: None Therapy Focus Self-care, Stress management, Mood/affect regulation and Self-esteem MEDICATIONS: Per medical record: Current Outpatient Medications Medication Sig - VITAMIN B COMPLEX (B COMPLEX-VITAMIN B12 ORAL) Take by mouth once daily. - MAGNESIUM OXIDE/MAGNESIUM (MAGNESIUM, OXIDE/AA CHELATE, ORAL) Take by mouth once daily. - Sodium,Potassium,ANDMag Sulfates (SUPREP BOWEL PREP KIT) 17.5-3.13-1.6 gram solr Take as directed (Patient not taking: Reported on 10/01/2019 ) - Sodium Chloride 0.9 % soln Pt to get this infused open to gravity the day before her colonoscopy (Patient not taking: Reported on 10/01/2019 ) No current facility-administered medications for this visit. Psychiatric Medication Issues: see med record DIAGNOSIS: Alton I: ADHD, inattentive type Adjustment, NOS ? Alton II?: Deferred Alton III?: See medical history Alton IV: ADHD and self esteem issues Alton V: 50-65 Treatment Modality/Interventions: Cognitive Behavioral Reassurance/Supportive Insight oriented Problem solving Psychoeducation TREATMENT ASSESSMENT/PROGRESS: . Progressing satisfactorily. TREATMENT PLAN/GOALS: Continue in therapy focusing on self-care, interpersonal relationships, assertiveness skills, affect management and self-esteem. Next appointment: as scheduled Paxton Dimas, PhD [facility] Progress note 04-26-2021 Note Date & Type Note Facility 04-26-2021 Note HNO ID: [id number] Author: Aga Delgadillo PA-C Service: ? Author Type: Physician Air Analysis Technician Type: Progress Notes Filed: 04/26/2021 8:06 AM Note Text: This note was created using [employer]. Subjective Meredith Frye is a 70 year old female. HPI Patient presents with a chief complaint of a scalp laceration x2 days. She states she was bent over and came up and hit her head on a hook on a shelf. She states it bled right away but she took a shower and the bleeding stopped after that. She denies any loss of consciousness. No significant headache. No vomiting. No lightheadedness or dizziness. No blurred or double vision. She is not on blood thinners. She states her last Tdap was within the past 4 years. She could not see the wound on her head so wanted to get it looked at. She has some mild pain around the wound. No discharge or bleeding since it initially happened. No fever. Review of Systems HENT: Scalp laceration All other systems reviewed and are negative. No past medical history on file. Current Outpatient Medications Medication Sig Dispense Refill - VITAMIN B COMPLEX (B COMPLEX-VITAMIN B12 ORAL) Take by mouth once daily. - MAGNESIUM OXIDE/MAGNESIUM (MAGNESIUM, OXIDE/AA CHELATE, ORAL) Take by mouth once daily. - Sodium,Potassium,ANDMag Sulfates (SUPREP BOWEL PREP KIT) 17.5-3.13-1.6 gram solr Take as directed (Patient not taking: Reported on 10/01/2019 ) 1 Bottle 0 - Sodium Chloride 0.9 % soln Pt to get this infused open to gravity the day before her colonoscopy (Patient not taking: Reported on 10/01/2019 ) 1000 mL 0 No current facility-administered medications for this visit. PAST SURGICAL HISTORY Procedure Laterality Date - PAST SURGICAL HISTORY OF Left 2010 wrist surgery FAMILY HISTORY Problem Relation Age of Onset - Hypertension Mother - Heart Father - Colon Cancer Sister Social History Tobacco Use - Smoking status: Former Smoker Types: Cigarettes Start date: 1976 Quit date: 1979 Years since quittin.7 - Smokeless tobacco: Never Used Substance Use Topics - Alcohol use: Yes Comment: 5/week - Drug use: No Objective BP 106/60 Pulse 70 Temp 36.5 ?C (97.7 ?F) Resp 16 SpO2 97% Physical Exam Vitals reviewed. Constitutional: Appearance: Normal appearance. HENT: Head: Normocephalic. Comments: Patient has a 1 cm flap laceration to the midline top of the scalp. There is some dried blood with no active bleeding. No significant hematoma or sign of skull injury. No FB visualized. No redness or swelling or discharge. No signs of infection. Skin: General: Skin is warm and dry. Neurological: General: No focal deficit present. Mental Status: She is alert and oriented to person, place, and time. Cranial Nerves: No cranial nerve deficit. Sensory: No sensory deficit. Motor: No weakness. Coordination: Coordination normal. Gait: Gait normal. Psychiatric: Mood and Affect: Mood normal. Behavior: Behavior normal. Assessment and Plan ASSESSMENT/PLAN: 1. Laceration of scalp, initial encounter - ICD9: 873.0, ICD10: S01.01XA Patient has no red flag symptoms for significant head injury. She is alert and oriented here and injury was 2 days ago. I cleansed the wound with Hibiclens and NS. Mupirocin ointment applied. Discussed wound care at home and signs of infection. Her tetnus is up to date. Discussed red flags for ER care. Patient agreeable with this plan. Aga Delgadillo PA-C [facility] Summary Purpose Family History No Family History Records Found Advance Directives No Advanced Directives Records Found Additional Source Comments INFORMATION SOURCE (unrecogn ized section and content) FOR RECORDS PERTAINING TO PATIENTS WHO ARE OR HAVE BEEN ENROLLED IN A CHEMICAL DEPENDENCY/SUBSTANCEABUSE PROGRAM, SOME INFORMATION MAY BE OMITTED. This clinical summary was aggregated from multiple sources. Caution should be exercised in using it in the provision of clinical care. This summary normalizes information from multiple sources, and as a consequence, information in this document may materially change the coding, format and clinical context of patient data. In addition, data may be omitted in some cases. CLINICAL DECISIONS SHOULD BE BASED ON THE PRIMARY CLINICAL RECORDS. [email or web address] provides no warranty or guarantee of the accuracy or completeness of information in this document.
[2023-08-28 12:15] LABS: Absolute Lymphocyte Count 2.31 X10^3/uL (0.83-4.51); Absolute Neutrophil Count 3.6 X10^3/uL (2.0-7.7); Basophil# 0.05 X10^3/uL; Basophil% 0.8 % (0-1); Eosinophils% 1.5 % (0-5); Hematocrit 41.3 % (37-47); Hemoglobin 13.4 g/dL (12.0-15.0); Lymphocyte # 2.31 X10^3/ul (0.83-4.51); Lymphocyte % 34.8 % (19-41); Mean Corp Hgb Conc 32.4 g/dL (32-36); Mean Corpuscular Hgb 29.6 pg (27.0-32.0); Mean Corpuscular Volume 91.2 fL (81-99); Mean Platelet Vol. 9.9 fl (6.2-12.0); Monocyte# 0.56 X10^3/uL; Monocyte% 8.4 % (0-10); NRBC Flagged by Analyzer 0 % (0-5); Neutrophil # 3.61 X10^3/uL (2.7-7.7); Neutrophil % 54.3 % (47-70); Platelet Count 400 K/mm3 (150-450); RBC Distribution Width CV 11.9 % (11.6-14.6); RBC Distribution Width SD 40.1 fl (35.1-43.9); Red Blood Count 4.53 M/mm3 (4.2-5.4); White Blood Count 6.6 K/mm3 (4.4-11.0)
[2023-08-28 13:10] LABS: ALB/GLOB Ratio 1.3 RATIO (0.9-2.4); AST(SGOT) 16 U/L (15-37); Alanine Aminotransfer ALT/SGPT 26 U/L (13-56); Albumin, Serum 3.8 g/dL (3.2-5.0); Alkaline Phosphatase 77 U/L (45-117); Anion Gap 6 (5-15); BUN 13 mg/dL (7-18); Calcium,Total 8.5 mg/dL (8.5-10.1); Chloride 108 mmol/L (98-107); Cholesterol 262 mg/dL (200); Creatinine, Serum 0.65 mg/dL (0.55-1.02); EST Glomerular Filtration Rate 96 mL/min (>60); Est Glom Filt Rate - Afr Amer 116 mL/min (>60); Glucose 90 mg/dL (74-106); High Density Lipoprotein 80 mg/dL; Potassium 3.9 mmol/L (3.5-5.1); Protein, Total 6.8 g/dL (6.4-8.2); Sodium Level 137 mmol/L (136-145); Triglycerides 69 mg/dL; Very Low Density Lipoprotein 14 mg/dL (5-40)
== END | disposition home or self-care (01) ==
LOC: BFHLAB 11:04
PROVIDERS: PCP Family Medicine; Visit Provider Family Medicine
DX: Z00.01 Encounter for general adult medical examination with abnormal findings (principal); E78.5 Hyperlipidemia, unspecified
CPT/HCPCS: 36415; 80053; 80061; 85025

== ENCOUNTER → 2024-11-05 | Outpatient (CLI) | payer MEDICARE, SELFPAY ==
[2024-11-05 09:51] LABS: Absolute Lymphocyte Count 2.34 X10^3/uL (0.83-4.51); Absolute Neutrophil Count 4.4 X10^3/uL (2.0-7.7); Basophil# 0.03 X10^3/uL; Basophil% 0.4 % (0-1); Eosinophil# 0.25 X10^3/uL; Eosinophils% 3.2 % (0-5); Hemoglobin 13.1 g/dL (12.0-15.0); Lymphocyte # 2.34 X10^3/ul (0.83-4.51); Lymphocyte % 29.8 % (19-41); Mean Corp Hgb Conc 32.8 g/dL (32-36); Mean Corpuscular Hgb 29.8 pg (27.0-32.0); Mean Corpuscular Volume 91.1 fL (81-99); Mean Platelet Vol. 10.1 fl (6.2-12.0); Monocyte# 0.76 X10^3/uL; Monocyte% 9.7 % (0-10); NRBC Flagged by Analyzer 0 % (0-5); Neutrophil # 4.44 X10^3/uL (2.7-7.7); Neutrophil % 56.6 % (47-70); Platelet Count 362 K/mm3 (150-450); RBC Distribution Width SD 40.4 fl (35.1-43.9); Red Blood Count 4.39 M/mm3 (4.2-5.4); White Blood Count 7.8 K/mm3 (4.4-11.0)
[2024-11-05 11:18] LABS: Cholesterol 251 mg/dL (<=200); High Density Lipoprotein 78 mg/dL; Low Density Lipoprotein Calc. 158 mg/dL; Triglycerides 77 mg/dL; Very Low Density Lipoprotein 15 mg/dL (5-40); cholesterol:hdl ratio screen 3.23
[2024-11-05 11:23] LABS: ALB/GLOB Ratio 2.1 RATIO (0.9-2.4); AST(SGOT) 20 U/L (<=31); Alanine Aminotransfer ALT/SGPT 24 U/L (<=34); Albumin, Serum 4.4 g/dL (3.4-4.8); Alkaline Phosphatase 65 U/L (35-104); Anion Gap 9 (5-15); BUN 12 mg/dL (4-19); BUN/Creat Ratio 18.7 RATIO (10-20); Calcium,Total 8.1 mg/dL (7.6-11.0); Carbon Dioxide 24.2 mmol/L (21.0-32.0); Chloride 102 mmol/L (98-108); Creatinine, Serum 0.65 mg/dL (0.70-1.20); EST Glomerular Filtration Rate 94 (>60); Globulin 2.1 g/dL (2.2-4.2); Glucose 86 mg/dL (70-99); Potassium 4.1 mmol/L (3.3-5.1); Protein, Total 6.5 g/dL (5.9-8.4); Sodium Level 135 mmol/L (133-145); Total Bilirubin 0.32 mg/dL (0.00-1.30)
== END | disposition home or self-care (01) ==
LOC: LAB 08:44
PROVIDERS: PCP Family Medicine; Visit Provider Family Medicine
DX: Z00.00 Encounter for general adult medical examination without abnormal findings (principal)
CPT/HCPCS: 36415; 80053; 80061; 85025